=== PATIENT | female | born 1975 | race Caucasian/White ===

== ENCOUNTER 2017-03-13 13:43 | Emergency (ER) | payer OTHER ==
[~2017-03-13] VITALS: Ht 165.1 cm; Wt 90.0 kg
[2017-03-13 13:45] VITALS: BP 164/91; PULSE 105; RESP 22; TEMP 98.9; O2SAT 98
--- NOTE | 2017-03-13 13:51 | PD ---
Physical Exam Time Seen by Provider: 13:48 Narrative 41-year-old who presents emergency Department with complaint of her lips feeling numb, fingertips feeling numb and heart racing after possibly taking two diet pills on accident at approx 11:45am. She also took an antibiotic, probiotic and a fiber pill. Reports chest pressure and shortness of breath. Patient seen in triage. Vital signs reviewed. Patient awaiting medical bed. Data Data Last Documented VS Vital Signs Date Time Temp Pulse Resp B/P (MAP) Pulse Ox O2 Delivery O2 Flow Rate FiO2 03/13/17 13:45 98.9 105 22 164/91 (115) 98 MDM Supervised Visit with JUSTIN: Macy Goode Mar 13, 2017 13:51
[2017-03-13] MEDS ORDERED: SODIUM CHLORIDE 0.9% FLUSH 10 ML FLUSH IVF PRN (14:15)
[2017-03-13] MEDS ORDERED: SODIUM CHLOR 0.9% 1000 ML INJ 1,000 ML IV ONE (14:15)
--- NOTE | 2017-03-13 14:16 | PD ---
HPI Chief Complaint: Chest Pain Time Seen by Provider: 14:00 Travel History International Travel<30 days: No Contact w/Intl Traveler<30days: No Traveled to known affect area: No History of Present Illness HPI Patient comes in complaining of palpitations and shortness of breath that began approximately 2 hours ago. Patient states this occurred approximately 30 minutes after taking what she believes to be upaj-ihm-lciqzri diet pill Oxyelite Pro. Patient states that she traveled here from [place] for business day trip and thought she was taking her multivitamins and thinks she may have got mixed up with the diet pill. Patient denies anything making this better or worse. Patient denies any chest pain, abdominal pain pain, nausea, vomiting, or headache. Patient states feels a little tingling in bilateral upper extremities as well. Patient denies any known medical history and is not taking medication regular. Patient states she does travel regularly for her job though. PFSH Past Medical History Medical History: Denies Significant Hx ?: Not LMP: 02/18/17 Social History Alcohol Use: Yes (socially) Tobacco Use: No Substance Use: No Allergies-Medications (Allergen,Severity, Reaction): Coded Allergies: Sulfa (Sulfonamide Antibiotics) (Verified Allergy, Severe, Hives, 03/13/17 ) Reported Meds & Prescriptions Reported Meds & Active Scripts Active No Active Prescriptions or Reported Medications Review of Systems Except as stated in HPI: all other systems reviewed are Neg Physical Exam Narrative GENERAL: Well-developed, overly nourished, in no acute distress, and non-ill appearing. SKIN: Focused skin assessment warm and dry. HEAD: Atraumatic. Normocephalic. EYES: Pupils equal and round. EOMI. No scleral icterus. No injection or drainage. ENT: No nasal bleeding or discharge. Mucous membranes pink and moist. NECK: Trachea midline. No JVD. Supple. No nuclear rigidity. CARDIOVASCULAR: Regular rate and rhythm. No murmur appreciated. RESPIRATORY: No accessory muscle use. No respiratory distress. Clear to auscultation. Breath sounds equal bilaterally. MUSCULOSKELETAL: No obvious deformities. No clubbing. No cyanosis. No edema. Full range of motion. NEUROLOGICAL: Awake and alert. No obvious cranial nerve deficits. Motor grossly within normal limits. Normal speech. PSYCHIATRIC: Appropriate mood and affect; insight and judgment normal. Data Data Last Documented VS Vital Signs Date Time Temp Pulse Resp B/P (MAP) Pulse Ox O2 Delivery O2 Flow Rate FiO2 03/13/17 17:37 03/13/17 16:58 97 20 98 Room Air 03/13/17 13:45 98.9 Orders Orders Electrocardiogram (03/13/17 14:07) Ckmb (Isoenzyme) Profile (03/13/17 14:07) Complete Blood Count With Diff (03/13/17 14:07) Comprehensive Metabolic Panel (03/13/17 14:07) D-Dimer (03/13/17 14:07) Magnesium (Mg) (03/13/17 14:07) Prothrombin Time / Inr (Pt) (03/13/17 14:07) Act Partial Throm Time (Ptt) (03/13/17 14:07) Troponin I (03/13/17 14:07) Chest, Single Ap (03/13/17 14:07) Ecg Monitoring (03/13/17 14:07) Bilateral Bp Monitoring (03/13/17 14:07) Iv Access Insert/Monitor (03/13/17 14:07) Oximetry (03/13/17 14:07) Oxygen Administration (03/13/17 14:07) Sodium Chloride 0.9% Flush (Ns Flush) (03/13/17 14:15) Sodium Chlor 0.9% 1000 Ml Inj (Ns 1000 M (03/13/17 14:15) Potassium Chloride (Kcl) (03/13/17 15:45) Potassium Chlor 20 Meq Premix (Kcl 20 Me (03/13/17 15:45) Ed Discharge Order (03/13/17 16:11) Labs Laboratory Tests Test 03/13/17 14:20 White Blood Count 6.9 TH/MM3 Red Blood Count 4.56 MIL/MM3 Hemoglobin 12.5 GM/DL Hematocrit 37.7 % Mean Corpuscular Volume 82.5 FL Mean Corpuscular Hemoglobin 27.4 PG Mean Corpuscular Hemoglobin Concent 33.2 % Red Cell Distribution Width 14.6 % Platelet Count 237 TH/MM3 Mean Platelet Volume 9.0 FL Neutrophils (%) (Auto) 62.9 % Lymphocytes (%) (Auto) 21.7 % Monocytes (%) (Auto) 13.7 % Eosinophils (%) (Auto) 1.2 % Basophils (%) (Auto) 0.5 % Neutrophils # (Auto) 4.4 TH/MM3 Lymphocytes # (Auto) 1.5 TH/MM3 Monocytes # (Auto) 0.9 TH/MM3 Eosinophils # (Auto) 0.1 TH/MM3 Basophils # (Auto) 0.0 TH/MM3 CBC Comment DIFF FINAL Differential Comment Prothrombin Time 10.5 SEC Prothromb Time International Ratio 1.0 RATIO Activated Partial Thromboplast Time 28.0 SEC D-Dimer Quantitative (PE/DVT) 0.44 MG/L FEU Blood Urea Nitrogen 9 MG/DL Creatinine 0.65 MG/DL Random Glucose 97 MG/DL Total Protein 7.5 GM/DL Albumin 3.7 GM/DL Calcium Level 8.1 MG/DL Magnesium Level 1.8 MG/DL Alkaline Phosphatase 56 U/L Aspartate Amino Transf (AST/SGOT) 21 U/L Alanine Aminotransferase (ALT/SGPT) 26 U/L Total Bilirubin 0.4 MG/DL Sodium Level 135 MEQ/L Potassium Level 2.9 MEQ/L Chloride Level 103 MEQ/L Carbon Dioxide Level 21.5 MEQ/L Anion Gap 11 MEQ/L Estimat Glomerular Filtration Rate 100 ML/MIN Total Creatine Kinase 82 U/L Troponin I LESS THAN 0.02 NG/ML MDM Medical Decision Making Medical Screen Exam Complete: Yes Emergency Medical Condition: Yes Differential Diagnosis Palpitations secondary to stimulant, acute coronary syndrome, PE, electrolyte abnormality, dehydration, pneumonia, other Narrative Course Patient's exam. Initial laboratory radiological studies were ordered. Discussed patient with poison control who feels the patient is likely to suffer acute liver failure is taking 2 of these pills recommends checking LFTs anyway. Suspect patient's symptoms is secondary to stimulant in the diet pill. Recommended supportive care until then. 1530 patient reassessed reports feeling better symptoms completely resolved at this time. Awaiting additional laboratory results. The patients chest palpitation by history and evaluation appears noncardiac, nor noncardiopulmonary in etiology. I suspect is secondary to stimulant noted in the diet pill. There is no clinical evidence to suggest thoracic aortic aneurysm or pathology, nor evidence to suggest pulmonary embolism, pericarditis , pneumothorax, nor pneumonia at this time. The patient has no significant risk factors for cardiac disease, pulmonary embolism or aortic disease. Clinical suspicion was discussed with patient and the patient was instructed to follow up with their doctor. The patient agreed with plan. Patient in no obvious distress upon re-evaluation. All pertinent laboratory/ Radiology result(s) discussed with patient. Discussed patient with Dr. Campos prior to discharge, who is in agreement with plan of care and disposition. Any questions/concerns in reference to patient diagnosis/ condition discussed and clarified prior to patient's discharge. Reinforced sheer importance of close follow up with patient's primary physician or primary care clinic. Instructed patient to return to ED immediately, if symptoms return/ worsen. Patient showed understanding of above instructions. Further instructions and recommendations were detailed in discharge paperwork. Patient ambulated without difficulty out of ED at discharge. Diagnosis Primary Impression: Heart palpitations Additional Impression: Hypokalemia Patient Instructions: General Instructions, Heart Palpitations (ED), Hypokalemia (ED) Additional Instructions: Follow-up with your primary care physician next week for reevaluation. Avoid taking diet pills and other [id number] stimulants. Return to the emergency department if symptoms get worse. Scripts No Active Prescriptions or Reported Meds Disposition: 01 DISCHARGE HOME Condition: Stable Cricket Lopez Mar 13, 2017 14:16
[2017-03-13 14:29] VITALS: O2SAT 99
[2017-03-13 14:45] LABS: AUTOMATED NEUTROPHIL # 4.4 TH/MM3 (1.8-7.7); BASOPHIL % 0.5 % (0.0-2.0); EOSINOPHIL # 0.1 TH/MM3 (0-0.4); EOSINOPHIL % 1.2 % (0.0-4.0); HEMATOCRIT 37.7 % (35.0-46.0); HEMO FLAGS DIFF FINAL; LYMPH % 21.7 % (9.0-44.0); LYMPHOCYTE # 1.5 TH/MM3 (1.0-4.8); MEAN CELL VOLUME 82.5 FL (80.0-100.0); MEAN CORPUSCULAR HEMOGLOBIN 27.4 PG (27.0-34.0); MEAN CORPUSCULAR HGB CONC 33.2 % (32.0-36.0); MONO % 13.7 % (0.0-8.0); NEUT % 62.9 % (16.0-70.0); PLATELET COUNT 237 TH/MM3 (150-450); RED BLOOD COUNT 4.56 MIL/MM3 (4.00-5.30); RED CELL DISTRIBUTION WIDTH 14.6 % (11.6-17.2); WHITE BLOOD COUNT 6.9 TH/MM3 (4.0-11.0)
--- NOTE | 2017-03-13 14:51 | RADRPT ---
EXAM DATE/TIME: 03/13/2017 14:22 [facility] COMPARISON: No previous studies available for comparison. INDICATIONS : Possible overdose- Chest pain and shortness of breath MEDICAL HISTORY : None. SURGICAL HISTORY : None. ENCOUNTER: Initial ACUITY: 1 day PAIN SCORE: 8/10 LOCATION: Bilateral upper chest FINDINGS: A single view of the chest demonstrates the lungs to be symmetrically aerated without evidence of mas s, infiltrate or effusion. The cardiomediastinal contours are unremarkable. Osseous structures are intact. CONCLUSION: No acute disease. No significant change has occurred. Barak Connor MD on March 13, 2017 at 14:49 Board Certified Radiologist. This report was verified electronically.
[2017-03-13 14:58] LABS: PROTHROMBIN TIME - PATIENT 10.5 SEC (9.8-11.6)
[2017-03-13 15:21] LABS: ALKALINE PHOSPHATASE 56 U/L (45-117); ALT (GPT) 26 U/L (10-53); ANION GAP 11 MEQ/L (5-15); AST (GOT) 21 U/L (15-37); BICARBONATE 21.5 MEQ/L (21.0-32.0); BLOOD UREA NITROGEN 9 MG/DL (7-18); CHLORIDE 103 MEQ/L (98-107); GLOMERULAR FILTRATION RATE 100 ML/MIN (>89); MAGNESIUM 1.8 MG/DL (1.5-2.5); SODIUM (NA) 135 MEQ/L (136-145); TOTAL BILIRUBIN ADULT 0.4 MG/DL (0.2-1.0)
[2017-03-13 15:37] LABS: CREATINE KINASE 82 U/L (26-192)
[2017-03-13 15:38] LABS: POTASSIUM 2.9 MEQ/L (3.5-5.1)
[2017-03-13] MEDS ORDERED: POTASSIUM CHLOR 20 MEQ PREMIX 100 ML IV ONE (15:45)
[2017-03-13] MEDS ORDERED: POTASSIUM CHLORIDE 20 MEQ CONTROLLED RELEASE TAB PO ONE (15:45)
[2017-03-13 16:58] VITALS: BP 123/63; PULSE 97; RESP 20; O2SAT 98
--- NOTE | 2017-03-13 18:49 | EKG ---
Date Performed: 03/13/2017 Time Performed: 14:03:38 PTAGE: 41 years EKG: Sinus rhythm NORMAL ECG NO PREVIOUS TRACING DOCTOR: Froylan Victor Interpretating Date/Time 03/13/2017 18:47:31
== END 2017-03-13 18:19 | disposition home or self-care (01) ==
LOC: NEPE 13:43
DX: R00.2 Palpitations (principal); E87.6 Hypokalemia
CPT/HCPCS: 71010; 80053; 82550; 83735; 84484; 85025; 85379; 85610; 85730; 93005; 96361; 96365; 96366; 99285; J3480; J7030